=== PATIENT | female | born 1985 | race Caucasian/White ===

== ENCOUNTER 2016-07-11 22:01 | Emergency (ER) | payer OTHER ==
[~2016-07-11] VITALS: Ht 160 cm; Wt 95.0 kg
[~2016-07-11 22:01] MED LIST: HYDR-5688 PO; MAGN400T6 PO; VITB2100
[2016-07-11 22:16] VITALS: TEMP 36.5; Ht 160 cm; Wt 95.0 kg
[2016-07-11] MEDS ORDERED: TRAM-10 PO ×2 (22:17→22:18)
[2016-07-11] MEDS ORDERED: ESCI1TAB10 PO (22:19)
[2016-07-11] MEDS ORDERED: DiphenhydrAMINE HCL 50 MG/ML VIAL IV STA (22:46)
[2016-07-11] MEDS ORDERED: METOCLOPRAMIDE HCL INJ 5 MG/ML 2 ML VIAL IV STA (22:46)
[2016-07-11] MEDS ORDERED: HYDROmorphone INJ 2 MG/ML SYR/VIAL IV STA (22:46)
[2016-07-11] MEDS ORDERED: SODIUM CHLORIDE 0.9% 500ML 500 ML IV STA (22:46)
[2016-07-11] MEDS ORDERED: HYDROmorphone INJ 0.5 MG/0.5 ML SYR ONE (23:08)
[2016-07-12 00:15] VITALS: BP 121/80; PULSE 73; O2SAT 98
--- NOTE | 2016-07-12 01:11 | EMERGENCY ROOM VISIT NOTE ---
History First contact with patient: 22:43 Chief Complaint: HEADACHE Stated Complaint: MIGRAINE, History of Present Illness The patient is a 30 year old female who presents to the Emergency Room with complaints of chronic migraines and got slightly worse today. Patient's been taking her tramadol as prescribed by her neurologist no improvement of symptoms. She described the headache as throbbing, ranging in severity 9 out of 10 throughout the frontal region similar to prior. Normal imaging in the past. Headache was not sudden in onset. Patient denies chest pain, dyspnea, fever, chills, numbness, tingling, weakness, neck stiffness, neck pain, lightheadedness or dizziness. Patient states she is just requesting some pain meds to help out with her migraine. Review of Systems See HPI for pertinent positives & negatives. A total of 10 systems reviewed and were otherwise negative. Past Medical/Surgical History Medical Problems: (1) Stomach problems Migraines Family History Diabetes mellitus FH: hypertension Hypertension Seizures Social History Smoking Status: Current Every Day Smoker Alcohol Use: occasionally Drug Use: none Marital Status: in relationship Housing Status: lives with significant other Occupation Status: employed Current/Historical Medications Scheduled Escitalopram Oxalate (Lexapro), 20 MG PO DAILY Tramadol (Ultram), 25 MG PO QAM Tramadol (Ultram), 75 MG PO QPM Allergies Coded Allergies: Prednisone (Verified Allergy, Intermediate, "PMS for 12 months", 05/03/16) Physical Exam Vital Signs Date Time Temp Pulse Resp B/P Pulse Ox O2 Delivery O2 Flow Rate FiO2 07/12/16 00:15 73 20 121/80 98 07/11/16 22:16 36.5 86 18 147/98 95 Room Air Pain Rating (0-10): 6.0 Physical Exam VITALS: Vitals are noted on the nurse's note and reviewed by myself. Vital signs stable. GENERAL: Pleasant female, in no acute distress, nondiaphoretic, well-developed well-nourished. SKIN: The skin was without rashes, erythema, edema, or bruising. There is no tenting of the skin. Capillary reflex less than 2 seconds. HEAD: Normocephalic atraumatic. EARS: External auditory canals clear, tympanic membranes pearly childress without erythema or effusion bilaterally. EYES: Pupils equal round and reactive to light and accommodation. Conjunctivae without injection, sclerae without icterus. Extraocular movements intact. NOSE: Patent, turbinates without inflammation or discharge. No sinus tenderness. MOUTH: Mucous membranes moist. Pharynx without erythema or exudate. Uvula midline. Airway patent. Tongue does not deviate. NECK: Supple without nuchal rigidity. No lymphadenopathy. No thyromegaly. Cervical spine is nontender. No JVD. No meningeal signs HEART: Regular rate and rhythm without murmurs gallops or rubs. LUNGS: Clear to auscultation bilaterally without wheezes, rales or rhonchi. No dullness to percussion. No retractions or accessory muscle use. ABDOMEN: Positive bowel sounds x 4. Normal tympanic percussion. Soft, nontender, without masses or organomegaly. Shanks sign negative. No guarding or rebound tenderness. MUSCULOSKELETAL: No muscle atrophy, erythema, or edema noted. NEURO: Patient was alert and oriented to person place and time. Normal sensation to light and sharp touch. No focal neurological deficits. Cranial nerves II through XII grossly intact. No pronator drift. Cerebellar exam intact. Medical Decision & Procedures Medications Administered Medications (Trade) Dose Ordered Sig/David Route Start Time Stop Time Status Last Admin Dose Admin Metoclopramide HCl (Reglan Inj) 10 mg NOW STAT IV 07/11/16 22:46 07/11/16 22:47 DC 07/11/16 23:14 10 MG Diphenhydramine HCl 12.5 mg 12.5 mg NOW STAT IV 07/11/16 22:46 07/11/16 22:47 DC 07/11/16 23:14 12.5 MG Sodium Chloride (Nss 500ml) 500 ml @ 999 mls/hr Q31M STAT IV 07/11/16 22:46 07/11/16 23:16 DC 07/11/16 22:46 999 MLS/HR Hydromorphone HCl (Dilaudid Inj) 0.5 mg STK-MED ONCE .ROUTE 07/11/16 23:08 07/11/16 23:09 DC 07/11/16 23:14 0.5 MG ED Course Prior records/ancillary studies reviewed. Additional history obtained from family Triage Nursing notes reviewed. The patient's history was concerning for headache. Differential diagnosis: Etiologies such as migraine headache, meningitis, sinusitis, CO exposure, ICH, SAH, infection, tumor, headache, sinus thrombosis, arterial dissection, as well as others were entertained. Physical examination findings: As above. Non-focal. ER treatment provided: Dilaudid, Reglan, Benadryl On reassessment the patient felt better. Diagnostics interpreted by me: Deferred This appears to be consistent with migraine. Patient has a long-standing history of migraines and symptoms are similar. She no deficits on exam. Patient was strongly encouraged to follow-up with her neurologist for prophylactic medication since she seems to have daily migraines. She was advised to return to the ER immediately for severe headache, fevers, neck stiffness, worsening signs or symptoms or as needed. Patient is well- appearing. She is neurovascularly and neurologically intact. No signs of meningitis.. By the evaluation outlined above emergent etiologies such as meningitis, sinusitis, CO exposure, ICH, SAH, infection, temporal arteritis, tumor, sinus thrombosis, arterial dissection, as well as others were deemed relatively unlikely. The pt informed about the findings as listed above. All questions were answered and pleased with the treatment. Return instructions were outlined and the patient was discharged in stable condition. Referral: The patient was referred back to their primary care physician for follow-up in 2 to 3 days for a recheck of the current condition. Medical Decision As above Impression Primary Impression: Migraine Departure Information Dispostion Home / Self-Care Condition GOOD Referrals Eron Ferrari M.D. (PCP) Forms HOME CARE DOCUMENTATION FORM, IMPORTANT VISIT INFORMATION Patient Instructions Migraine Meds Lifestyle Change, My [facility] [employer] Additional Instructions DO NOT drive, drink alcohol, operate machinery, or perform dangerous activities today. You were given medications in the ER that can affect your ability to safely function or operate a vehicle. Rest today in a quiet, peaceful, dark environment and get a full 8-10 hrs of sleep tonight. Avoid loud noises, smoke/smoking, alcohol, bright lights, stress, or physical exertion today to minimize the chance the headache may return. Continue current medications. Ibuprofen(Motrin, Advil) may be used for fever or pain. Use 600mg every six hours as needed. Take with food. Avoid using more than 2400mg in a 24 hour period. Do not use 2400mg per day for more than three consecutive days without physician direction. Prolonged inappropriate use can lead to stomach upset or ulcers. (AND/OR) Acetaminophen(Tylenol) may be used for fever or pain. Use 1000mg every six hours as needed. Avoid using more than 3000mg in a 24 hour period. Return to the ER for passing out, worsening headache, vision problems, neck stiffness/pain, fevers, vomiting, worsening of your condition, or as needed. Follow up with your primary physician and/or a neurologist in 2-3 days for a recheck of your current condition. Problem Qualifiers Primary Impression: Migraine Migraine type: without aura Status migrainosus presence: with status migrainosus Intractability: not intractable Qualified Codes: G43.001 - Migraine without aura, not intractable, with status migrainosus
[2016-07-31] MEDS ORDERED: SERT50TA PO (13:47)
== END 2016-07-12 00:17 | disposition home or self-care (01) ==
LOC: EDBD 22:01 → C.EDC 22:03
DX: G43.001 Migraine without aura, not intractable, with status migrainosus (principal); F17.200 Nicotine dependence, unspecified, uncomplicated; Z83.3 Family history of diabetes mellitus; Z82.49 Family history of ischemic heart disease and other diseases of the circulatory system; Z82.0 Family history of epilepsy and other diseases of the nervous system

== ENCOUNTER 2016-10-02 14:49 | Emergency (ER) | payer OTHER ==
[~2016-10-02] VITALS: Ht 160 cm; Wt 99.1 kg
[~2016-10-02 14:49] MED LIST changes: +ESCI1TAB10 PO; -HYDR-5688 PO; -MAGN400T6 PO; +SERT50TA PO; +TRAM-10 PO; -VITB2100
[2016-10-02 14:51] VITALS: TEMP 37.3; Ht 160 cm; Wt 99.1 kg
[2016-10-02] MEDS ORDERED: HYDROmorphone INJ 1 MG/ML SYR IV STA (15:01)
[2016-10-02] MEDS ORDERED: ONDANSETRON INJ 2 MG/ML 2 ML VIAL IV STA (15:01)
--- NOTE | 2016-10-02 15:56 | DIAGNOSTIC IMAGING REPORT ---
RIGHT KNEE 2 VIEWS CLINICAL HISTORY: Right knee injury. FINDINGS: AP and crosstable lateral views of the right knee are obtained. No prior studies are available for comparison at the time of dictation. The skeletal structures are well mineralized. No fracture is seen. The joint spaces of the knee are well-maintained. A calcified fabella is incidentally noted. There is a small joint effusion. The overlying soft tissues are within normal limits. IMPRESSION: 1. No acute bony abnormality is seen in the right knee. 2. A small joint effusion is suspected. Electronically signed by: Maik Torres M.D. 10/02/2016 3:53 PM Dictated Date/Time: 10/02/2016 3:52 PM
[2016-10-02] MEDS ORDERED: DiphenhydrAMINE HCL 50 MG/ML VIAL IV STA (16:29)
[2016-10-02] MEDS ORDERED: OXYC1TAB3 PO (16:32)
[2016-10-02 16:55] VITALS: BP 121/82; PULSE 65; O2SAT 96
--- NOTE | 2016-10-02 16:58 | EMERGENCY ROOM VISIT NOTE ---
History First contact with patient: 14:55 Chief Complaint: KNEEPAIN Stated Complaint: RT KNEE PAIN History of Present Illness The patient is a 30 year old female who presents to the Emergency Room with complaints of right knee pain after her knee popped while starting a lawnmower. The patient reports that after the pop, she fell to the ground, and felt another pop. Upon my presentation, the patient rates her pain an 8 out of 10. She was transported here via ambulance, and administered morphine 10 mg and Zofran 4 mg IVP. She denies any pain extending into the leg or thigh. Denies paresthesias or numbness of the right lower extremity. She denies any prior history of knee problems or patellofemoral syndrome. Review of Systems 10 system review was performed and was negative except for pertinent positives and negatives as indicated in history of present illness Past Medical/Surgical History Medical Problems: (1) Stomach problems Family History Diabetes mellitus FH: hypertension Hypertension Seizures Social History Smoking Status: Current Every Day Smoker Alcohol Use: occasionally Drug Use: none Marital Status: , in relationship Housing Status: lives with significant other Occupation Status: unemployed Current/Historical Medications Scheduled PRN Oxycodone Ir (Roxicodone Ir), 1-2 TAB PO Q4H PRN for Pain Allergies Coded Allergies: Prednisone (Verified Allergy, Intermediate, "PMS for 12 months", 07/31/16) Physical Exam Vital Signs Date Time Temp Pulse Resp B/P Pulse Ox O2 Delivery O2 Flow Rate FiO2 10/02/16 14:51 37.3 78 19 137/84 99 Room Air Physical Exam CONSTITUTIONAL: Healthy and well nourished. Alert and oriented X 3 with positive affect. Patient appears in mild to moderate discomfort from pain. HEENT: Normocephalic, atraumatic. Pupils equal, round and reactive. NECK: Full active range of motion without discomfort. RESPIRATORY: Clear to auscultation bilaterally with no wheezing, crackles, rhonchi or stridor. CARDIOVASCULAR: Regular rate and rhythm with no murmurs, rubs or gallops. MUSCULOSKELETAL: Examination of the right knee shows mild edema when compared to the left. She has no ecchymosis, erythema or open wounds. The patient has tenderness to palpation along the medial joint line and peripatellar region. The patient was unable to tolerate any range of motion or ligamentous exam of the knee. No popliteal masses. No focal tenderness to palpation through the hamstrings or gastrocs name is. Pedal pulses are intact. INTEGUMENTARY: No rash or other significant dermatologic conditions noted. NEUROLOGIC: Right lower extremity is sensory intact. Medical Decision & Procedures ER Provider Diagnostic Interpretation: My interpretation of right knee x-rays does not show any acute fractures or dislocation. No patellar subluxation or avulsion fractures noted. Radiologist report is as follows: RIGHT KNEE 2 VIEWS CLINICAL HISTORY: Right knee injury. FINDINGS: AP and crosstable lateral views of the right knee are obtained. No prior studies are available for comparison at the time of dictation. The skeletal structures are well mineralized. No fracture is seen. The joint spaces of the knee are well-maintained. A calcified fabella is incidentally noted. There is a small joint effusion. The overlying soft tissues are within normal limits. IMPRESSION: 1. No acute bony abnormality is seen in the right knee. 2. A small joint effusion is suspected. Medications Administered Medications (Trade) Dose Ordered Sig/David Route Start Time Stop Time Status Last Admin Dose Admin Hydromorphone HCl (Dilaudid Inj) 1 mg NOW STAT IV 10/02/16 15:01 10/02/16 15:05 DC 10/02/16 15:28 1 MG Ondansetron HCl (Zofran Inj) 4 mg NOW STAT IV 10/02/16 15:01 10/02/16 15:05 DC 10/02/16 15:27 4 MG ED Course Patient history and physical exam were performed. Nurse's notes were reviewed. The patient reports that the morphine was administered en route did not provide any pain relief. She was also complaining of persistent nausea. She was administered Dilaudid 1 mg and Zofran 4 mg IVP. X-rays of the right knee shows a mild joint effusion, otherwise no other acute fracture, dislocation or subluxation noted. The patient was advised of her x-ray findings. She was encouraged to continue intermittently apply ice to the knee. A knee immobilizer and crutches were dispensed. The patient did have some itching after my final evaluation. She was administered Benadryl 25 mg IVP. The patient was encouraged to alternate ibuprofen and Tylenol for baseline pain relief. A prescription for OxyIR 5 mg, dispensed #15 with no refills, was provided. The patient was instructed to follow-up with [facility] for further reevaluation and management. The patient was happy with plan care, voiced understanding of all discharge instructions, and rated her pain a 5 out of 10 at the conclusion of my exam. Medical Decision Impression Primary Impression: Subluxation of right patella Departure Information Prescriptions Oxycodone Ir (Roxicodone Ir) 5 Mg Tab 1-2 TAB PO Q4H Y for Pain, #15 TAB For Initial Treatment Prov: Mitchell Horta PA 10/02/16 Referrals Eron Ferrari M.D. (PCP) Patient Instructions My [facility] Problem Qualifiers Primary Impression: Subluxation of right patella Encounter type: initial encounter Qualified Codes: S83.001A - Unspecified subluxation of right patella, initial encounter
== END 2016-10-02 17:10 | disposition home or self-care (01) ==
LOC: EDBD 14:49 → C.EDA 14:51
DX: S83.004A Unspecified dislocation of right patella, initial encounter (principal); W19.XXXA Unspecified fall, initial encounter; F17.200 Nicotine dependence, unspecified, uncomplicated; Z87.19 Personal history of other diseases of the digestive system; Z88.8 Allergy status to other drugs, medicaments and biological substances; Z80.9 Family history of malignant neoplasm, unspecified; Z82.49 Family history of ischemic heart disease and other diseases of the circulatory system; Z82.0 Family history of epilepsy and other diseases of the nervous system

== ENCOUNTER 2016-10-15 01:46 | Inpatient (IN) | payer OTHER ==
[~2016-10-15] VITALS: Ht 160 cm; Wt 91.0 kg
[~2016-10-15 01:46] MED LIST changes: -ESCI1TAB10 PO; +OXYC1TAB3 PO; -SERT50TA PO; -TRAM-10 PO
[2016-10-15 01:50] VITALS: O2SAT 96
--- NOTE | 2016-10-15 02:17 | EMERGENCY ROOM VISIT NOTE ---
History Report prepared by Maribell: Tabitha Lo Under the Supervision of: Dr. Pilar Benjamin D.O. First contact with patient: 01:50 Chief Complaint: MENTAL HEALTH EVALUATION Stated Complaint: MENTAL HEALTH History of Present Illness The patient is a 30 year old female who presents to the Emergency Room for a mental health evaluation after feeling like she wanted help jaylene. The patient states that she has been in a relationship with her boyfriend for a year and a half and he is not very nice to her. She reports that she caught him in a lie today and when she is not happy with him he gets very defensive and calls her names. She notes that she lives with him and has a few friends here but she is originally from [place]. Tonight the patient reports that she came in because she is at her breaking point and wants help. She states that she feels like she wants to go to sleep and just not wake up. She notes that she has only seen a psychiatrist one time when she was 12 but did not go back because her mother was not supportive of the idea. The patient notes that she has a history of migraines and sees a neurologist. She states that she is supposed to have a nerve block but she does not have a way to get there. She complains of knee pain secondary to an injury that she has been ignoring. She notes that she is still doing the housework for her boyfriend. The patient denies any abdominal pain and chance of . She reports that her LNMP was a few weeks ago and her tubes are tied. The patient states that she has been drinking more often to try to forget about the things that her boyfriend does. Source of History: patient Onset: jaylene Position: other (global) Quality: other (mental health) Timing: constant Associated Symptoms: No abdominal pain Review of Systems See HPI for pertinent positives & negatives. A total of 10 systems reviewed and were otherwise negative. Past Medical & Surgical Medical Problems: (1) PTSD (post-traumatic stress disorder) (2) Stomach problems Family History Diabetes mellitus FH: hypertension Hypertension Seizures Social History Smoking Status: Current Every Day Smoker Alcohol Use: occasionally Drug Use: none Marital Status: , in relationship Housing Status: lives with significant other Occupation Status: unemployed Current/Historical Medications No Active Prescriptions or Reported Meds Allergies Coded Allergies: Prednisone (Verified Allergy, Intermediate, "PMS for 12 months", 10/15/16) Physical Exam Vital Signs Date Time Temp Pulse Resp B/P Pulse Ox O2 Delivery O2 Flow Rate FiO2 10/15/16 01:50 37.0 108 18 154/97 96 Room Air Physical Exam General: The patient is tearful. HEENT: Head - normocephalic and atraumatic Pupils are equal, round, and reactive to light. Extraocular eye muscles are intact, and sclera are anicteric. Nose - moist nasal mucosa without discharge. Mouth - moist buccal mucosa. Oropharynx is nonerythematous and there is no tonsillar exudate or edema noted. Neck: Supple; no JVD, nuchal rigidity, cervical lymphadenopathy. Heart: Regular rate and rhythm. There is a normal S1 and S2 with no murmurs, clicks, or gallops appreciated. Lungs: Clear to auscultation bilaterally with no wheezes, rales, or rhonchi. Abdomen: Soft, completely nontender, nondistended, with good bowel sounds. There are no palpable pulsatile masses or hepatosplenomegaly. There is no guarding, rigidity, or rebound noted. Extremities: No evidence of cyanosis, clubbing, or edema. There are easily palpable peripheral pulses. Skin: warm and dry with good turgor and no rashes. Psych: The patient appears depressed, admits to suicidal ideation with no specific plan. Medical Decision & Procedures Laboratory Results 10/15/16 02:13 10/15/16 02:11 Test 10/15/16 02:00 10/15/16 02:11 10/15/16 02:13 Urine Color YELLOW Urine Appearance CLOUDY (CLEAR) Urine pH 5.0 (4.5-7.5) Urine Specific [place] 1.016 (1.000-1.030) Urine Protein NEG (NEG) Urine Glucose (UA) NEG (NEG) Urine Ketones NEG (NEG) Urine Occult Blood 3+ (NEG) Urine Nitrite NEG (NEG) Urine Bilirubin NEG (NEG) Urine Urobilinogen NEG (NEG) Urine Leukocyte Esterase MODERATE (NEG) Urine WBC (Auto) >30 /hpf (0-5) Urine RBC (Auto) 5-10 /hpf (0-4) Urine Hyaline Casts (Auto) 10-30 /lpf (0-5) Urine Epithelial Cells (Auto) >30 /lpf (0-5) Urine Bacteria (Auto) 3+ (NEG) Urine Test NEG (NEG) Urine Opiates Screen NEG (NEG) Urine Methadone, Qualitative NEG (NEG) Urine Barbiturates NEG (NEG) Urine Phencyclidine (PCP) Level NEG (NEG) Ur Amphetamine/Methamphetamine NEG (NEG) MDMA (Ecstasy) Screen NEG (NEG) Urine Benzodiazepines Screen NEG (NEG) Urine Cocaine Metabolite NEG (NEG) Urine Marijuana (THC) NEG (NEG) Anion Gap 12.0 mmol/L (3-11) Est Creatinine Clear Calc Drug Dose 105.2 ml/min Estimated GFR () 108.9 Estimated GFR (Non- 94.0 BUN/Creatinine Ratio 6.7 (10-20) Calcium Level 8.4 mg/dl (8.5-10.1) Thyroid Stimulating Hormone (TSH) 12.000 uIu/ml (0.300-4.500) Free Thyroxine 1.18 ng/dl (0.80-1.60) Free Triiodothyronine 3.13 pg/ml (2.30-4.20) Red Blood Count 4.35 M/uL (4.2-5.4) Mean Corpuscular Volume 89.2 fL (80-100) Mean Corpuscular Hemoglobin 29.4 pg (25-34) Mean Corpuscular Hemoglobin Concent 33.0 g/dl (32-36) RDW Standard Deviation 48.3 fL (36.4-46.3) RDW Coefficient of Variation 14.8 % (11.5-14.5) Mean Platelet Volume 9.4 fL (7.4-10.4) Salicylates Level 6.5 mg/dl (2.8-20) Acetaminophen Level 4 ug/ml (10-30) Ethyl Alcohol mg/dL 75.0 mg/dl (0-3) Laboratory results per my review. Medications Administered Medications (Trade) Dose Ordered Sig/David Route Start Time Stop Time Status Last Admin Dose Admin Acetaminophen (Tylenol Tab) 1,000 mg NOW STAT PO 10/15/16 02:47 10/15/16 02:48 DC 10/15/16 02:56 1,000 MG Ondansetron HCl (Zofran Odt) 4 mg STK-MED ONCE .ROUTE 10/15/16 03:48 10/15/16 03:49 DC 10/15/16 03:48 4 MG Miscellaneous Information (Nursing Verbal Med Order) 1 ea ONE ONCE N/A 10/15/16 04:00 10/15/16 04:01 DC 10/15/16 04:00 1 EA Procedure 0247: Tylenol Tab 1000mg PO. 0348: Zofran Odt 4mg PO. ED Course 0159: Past medical records reviewed. The patient was evaluated in room A8. A complete history and physical exam was performed. Labs were drawn as above. 0232: The patient is nauseated and has a headache. 0247: Tylenol Tab 1000mg PO. 0348: Zofran Odt 4mg PO. 0430: The patient Is willing to sign herself in voluntarily. She was evaluated by staff from 3 S. 0432: Upon reevaluation, I discussed findings and results with the patient. She verbalized agreement of the treatment plan. The patient will be evaluated for further psychiatric management and care. Medical Decision The patient is a 30 year old female who presents to the ED for a mental health evaluation. Differential diagnosis includes suicidal ideation, anxiety, mood disorder, depression. LABS: Alcohol is 75 Salicylate 6.5 Tylenol 4 Negative Tox Screen TSH 12 Glucose 102 Normal Renal Function No Leukocytosis Stable H&H The patient presents to the emergency department after feeling extremely depressed and suicidal. She has never had inpatient psychiatric care in the past. She is willing to sign herself in voluntarily. It was noted that her TSH was extremely high at 12. She will have T3 and free T4 testing done. The patient was evaluated for admission to 3 . She is willing to sign in voluntarily. Impression Primary Impression: Suicidal ideation Additional Impression: Hypothyroidism Scribe Attestation The scribe's documentation has been prepared under my direction and personally reviewed by me in its entirety. I confirm that the note above accurately reflects all work, treatment, procedures, and medical decision making performed by me. Departure Information Dispostion Mental Health Acute Care Prescriptions No Active Prescriptions or Reported Meds Referrals Eron Ferrari M.D. (PCP) Patient Instructions My [facility] Problem Qualifiers
[2016-10-15 02:24] LABS: HEMATOCRIT 38.8 % (37-47); MEAN CELL VOLUME 89.2 fL (80-100); MEAN CORPUSCULAR HEMOGLOBIN 29.4 pg (25-34); MEAN PLATELET VOLUME 9.4 fL (7.4-10.4); PLATELET COUNT 417 K/uL (130-400); RED BLOOD COUNT 4.35 M/uL (4.2-5.4); WHITE BLOOD COUNT 9.87 K/uL (4.8-10.8)
[2016-10-15 02:27] LABS: URINE APPEARANCE CLOUDY (CLEAR); URINE BILIRUBIN NEG (NEG); URINE COLOR YELLOW; URINE EPITHELIAL CELL AUTO >30 /lpf (0-5); URINE NITRITE NEG (NEG); URINE SPECIFIC GRAVITY 1.016 (1.000-1.030); UROBILINOGEN NEG (NEG)
[2016-10-15 02:28] LABS: MANUAL MICROSCOPIC REQUIRED? NO; REVIEW REQ? NO
[2016-10-15] MEDS ORDERED: ACETAMINOPHEN 500 MG TAB PO STA (02:47)
[2016-10-15 02:48] LABS: BENZODIAZEPINE, URINE NEG (NEG); COCAINE,URINE NEG (NEG); PHENCYCLIDINE, URINE NEG (NEG)
[2016-10-15 02:50] LABS: BUN/CREATININE RATIO 6.7 (10-20); CALCIUM 8.4 mg/dl (8.5-10.1); CREATININE 0.83 mg/dl (0.60-1.20); POTASSIUM 3.7 mmol/L (3.5-5.1)
[2016-10-15] MEDS ORDERED: ONDANSETRON 4MG OD TAB ONE (03:48)
[2016-10-15] MEDS ORDERED: NURSING VERBAL MED ORDER ONE ×2 (04:00→04:30)
[2016-10-15] MEDS ORDERED: ONDANSETRON 4MG OD TAB PO STA (04:30)
[2016-10-15 04:51] VITALS: BP_SYST 154; BP_SYST 166; BP_DIAS 95; BP_DIAS 97; PULSE 89; TEMP 36.4; TEMP 37; Ht 160 cm; Wt 91.0 kg
[2016-10-15] MEDS ORDERED: BISMUTH SUBSALICYLATE PER ML OMNICELL CHARGE PO PRN (06:00)
[2016-10-15] MEDS ORDERED: ALUMINUM/MAGNESIUM SUSP 30 ML UDC PO PRN (06:00)
[2016-10-15] MEDS ORDERED: MAGNESIUM HYDROXIDE SUSP 30 ML UDC PO PRN (06:00)
[2016-10-15] MEDS ORDERED: hydrOXYzine HCL 25 MG TAB PO PRN (06:00)
[2016-10-15] MEDS ORDERED: NICOTINE POLACRILEX 2 MG GUM MT PRN (06:00)
[2016-10-15] MEDS ORDERED: SODIUM CHLORIDE 0.65% NA SOLN 45 ML (OCEAN) PRN (06:00)
[2016-10-15 06:11] VITALS: BP 166/95; PULSE 89; TEMP 36.4
[2016-10-15] MEDS ORDERED: NICOTINE 14 MG/24 HR TDSY TD SCH (09:00)
[2016-10-15] MEDS: ACETAMINOPHEN 325 MG TAB PO PRN (09:27)
[2016-10-15] MEDS ORDERED: NICOTINE 7 MG/24 HR TDSY TD ONE (09:45)
[2016-10-15] MEDS: NICOTINE 7 MG/24 HR TDSY TD SCH (11:53)
[2016-10-15] MEDS ORDERED: DULOXETINE HCL 20 MG CAP PO ONE (19:00)
[2016-10-15] MEDS: hydrOXYzine HCL 25 MG TAB PO PRN (19:24)
[2016-10-15 19:43] LABS: PROTHROMBIN TIME (PATIENT) 11.2 SECONDS (9.0-12.0)
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
[2016-10-16 07:04] VITALS: BP_SYST 132; BP_SYST 150; BP_DIAS 75; BP_DIAS 77; PULSE 64; PULSE 76; TEMP 36.9
[2016-10-16] MEDS: NICOTINE 7 MG/24 HR TDSY TD SCH (09:23)
[2016-10-16] MEDS: DULOXETINE HCL 20 MG CAP PO SCH (09:23)
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
[2016-10-17 07:04] VITALS: BP_SYST 110; BP_SYST 121; BP_DIAS 75; BP_DIAS 78; PULSE 54; PULSE 66; TEMP 36.7
[2016-10-17] MEDS: DULOXETINE HCL 20 MG CAP PO SCH (09:06)
[2016-10-17] MEDS: NICOTINE 7 MG/24 HR TDSY TD SCH (09:07)
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
[2016-10-17] MEDS: ACETAMINOPHEN 325 MG TAB PO PRN (20:04)
[2016-10-18] MEDS: ACETAMINOPHEN 325 MG TAB PO PRN ×2 (02:26→16:50)
[2016-10-18] MEDS: hydrOXYzine HCL 25 MG TAB PO PRN (02:29)
[2016-10-18 06:45] VITALS: BP_SYST 130; BP_SYST 133; BP_DIAS 83; BP_DIAS 86; PULSE 69; PULSE 72; TEMP 36.9
[2016-10-18] MEDS ORDERED: DULO-76 PO (08:39)
[2016-10-18] MEDS: NICOTINE 7 MG/24 HR TDSY TD SCH (08:47)
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
[2016-10-18] MEDS ORDERED: DULOXETINE HCL 20 MG CAP PO SCH (09:00)
[2016-10-18] MEDS ORDERED: NICO14DI5 TD (10:38)
== END 2016-10-18 17:38 | disposition home or self-care (01) | DRG 881 ==
LOC: ENRESERVDT → ENRESERVTM → EDBD 01:46 → C.EDA 01:47 → C.MHU 04:12
PROVIDERS: ADMIT Psychiatry & Neurology Psychiatry; ATTEND Psychiatry & Neurology Psychiatry
DX: F32.9 Major depressive disorder, single episode, unspecified (principal); R45.851 Suicidal ideations; E03.9 Hypothyroidism, unspecified; F43.10 Post-traumatic stress disorder, unspecified; E66.3 Overweight; F42.9 Obsessive-compulsive disorder, unspecified; M25.561 Pain in right knee; F17.210 Nicotine dependence, cigarettes, uncomplicated; G43.909 Migraine, unspecified, not intractable, without status migrainosus; E28.2 Polycystic ovarian syndrome; R60.0 Localized edema; Z68.29 Body mass index [BMI] 29.0-29.9, adult; Z81.8 Family history of other mental and behavioral disorders; Z91.410 Personal history of adult physical and sexual abuse; Z91.411 Personal history of adult psychological abuse